=== PATIENT | male | born 1990 | race Caucasian/White ===

== ENCOUNTER 2024-07-07 14:53 | Emergency (ER) | payer BC | END 2024-07-07 17:18 | disposition home or self-care (01) | LOC: MW.ED 14:53 | DX: B02.9 Zoster without complications (principal); Z79.899 Other long term (current) drug therapy; Z75.8 Other problems related to medical facilities and other health care | CPT/HCPCS: 93005; 99284 ==

== ENCOUNTER 2024-08-28 06:52 | Emergency (ER) | payer BC ==
[2024-08-28] MEDS: Bupivacaine 0.25% 10 ML SDV INJECT ONE (07:36)
[2024-08-28] MEDS: Lidocaine 1% with EPINEPHrine 1:100,000 10 ML MDV INJECT ONE (07:36)
[2024-08-28] MEDS: Diphtheria,Pertussis(Acell),Tetanus Vaccine 0.5 ML Syringe IM ONE (08:37)
[2024-08-28] MEDS: Cephalexin 500 MG Cap PO ONE (08:37)
[2024-08-28] MEDS: Sulfamethoxazole/Trimethoprim 800-160 MG Tab PO ONE (08:37)
== END 2024-08-28 08:44 | disposition home or self-care (01) ==
LOC: MW.ED 06:52
DX: S41.112A Laceration without foreign body of left upper arm, initial encounter (principal); Z23 Encounter for immunization; W26.8XXA Contact with other sharp object(s), not elsewhere classified, initial encounter; Y99.0 Civilian activity done for income or pay; Y92.89 Other specified places as the place of occurrence of the external cause
CPT/HCPCS: 12002; 90471; 90715; 99282; A9270; J0665

== ENCOUNTER 2024-09-19 10:58 | Emergency (ER) | payer BC | END 2024-09-19 12:07 | disposition home or self-care (01) | LOC: MW.ED 10:58 | DX: M79.2 Neuralgia and neuritis, unspecified (principal); B02.9 Zoster without complications; F17.210 Nicotine dependence, cigarettes, uncomplicated; Z79.899 Other long term (current) drug therapy; Z75.8 Other problems related to medical facilities and other health care | CPT/HCPCS: 99282 ==

== ENCOUNTER 2024-11-08 12:08 | Emergency (ER) | payer BC | END 2024-11-08 14:23 | disposition left against medical advice (07) | LOC: MW.ED 12:08 | DX: Z53.21 Procedure and treatment not carried out due to patient leaving prior to being seen by health care provider (principal) ==

== ENCOUNTER 2024-11-30 11:31 | Emergency (ER) | payer BC | END 2024-11-30 12:03 | disposition home or self-care (01) | LOC: MW.ED 11:31 | DX: Z02.89 Encounter for other administrative examinations (principal); F17.200 Nicotine dependence, unspecified, uncomplicated; Z79.899 Other long term (current) drug therapy | CPT/HCPCS: 99282; 99283 ==